=== PATIENT | female | born 1975 | race Caucasian/White ===

== ENCOUNTER → 2017-08-20 | Outpatient (CLI) | payer OTHER ==
[~2017-08-20] MED LIST: ACEASPCAF PO; ACET500; ACET500 PO; AMIT50 PO; AMOCLA875 PO; ANTIOXIDANT FO1 EACH PO; BUSP10 PO; BUSP15 PO; CARAFATE PO; CIPR500 PO; CRUTCH3 USE; CYAN1000I IM; DAILY VALUE1 EACH PO; DIAZ5 PO; DOCU100 PO; ERGO400 PO; FERR325 PO; GUAPHELA PO; HYDACE5 PO; HYDACE5325; IBUP600 PO; IBUP800; IBUP800 PO; IRON150C PO; LAVAP17G; LEVFLO500 PO; LINZESS145 MCG PO; MEDR150I; MELATONIN 10 M1 EACH PO; MELATONIN10 MG PO; METO10 PO; Multiple Vitam1 EAC1; OMEP20ER PO; ONDA4 PO; ONDA4ODT MM; ONDA8 PO; OTC POTASSIUM; OXYACE5T PO; OXYACE7.5T PO; OXYC5 PO; PANT20 PO; PANT40 PO; POTCHL10ER PO; PROBIOTIC1 EAC1; PROM25 PO; QUET100 PO; QUET25 PO; RXHYDGUAS PO; RXONDA4ODT MM; RXOXYACE PO; RXSULTRIDS PO; Roxicodone5 MG PO; STOMACH MEDICATION; STOOL SOFTENER; SUCR1 PO; SULTRIDS PO; SUMA25; TRAM50 PO; VITAMIN D33000 UNIT PO; Vitamin D2000 UNIT PO; Zofran Odt8 MG SL; [UNRECOGNIZED DRUG - OTHER] PR
[2017-08-24 23:10] LABS: CHLAMYDIA TRACHOMATIS, NAA Negative (Negative); NEISSERIA GONORRHOEAE, NAA Negative (Negative)
== END | disposition home or self-care (01) ==
LOC: LAB SHORT 18:39 → LAB EV 18:39
PROVIDERS: Physician Assistant
DX: Z20.9 Contact with and (suspected) exposure to unspecified communicable disease (principal)
CPT/HCPCS: 87491; 87591

== ENCOUNTER → 2017-09-07 | Outpatient (CLI) | payer OTHER ==
[2017-09-07 18:13] LABS: Source, Urine Clean Catch
[2017-09-07 18:44] LABS: Bacteria Many /hpf; Mucus Heavy (0-Heavy); Squamous Epithelial Cells Many /hpf (Few)
== END | disposition home or self-care (01) ==
LOC: LAB SHORT 16:40 → LAB EV 16:40
PROVIDERS: Physician Assistant
DX: R31.9 Hematuria, unspecified (principal)
CPT/HCPCS: 81015

== ENCOUNTER → 2022-03-19 | Outpatient (CLI) | payer OTHER ==
[2022-03-19 16:23] LABS: Percent Saturation 4.5 % (15.0-50.0)
== END | disposition home or self-care (01) ==
LOC: LAB SHORT 09:27
PROVIDERS: Internal Medicine Hematology & Oncology
DX: D50.0 Iron deficiency anemia secondary to blood loss (chronic) (principal)
CPT/HCPCS: 82728; 83540; 83550

== ENCOUNTER → 2022-05-01 | Outpatient (CLI) | payer OTHER ==
[2022-05-01 19:03] LABS: Bilirubin, Total 0.1 mg/dL (0.1-1.0); Calcium, Blood 8.7 mg/dL (8.5-10.1); Creatinine, Blood 0.61 mg/dL (0.40-1.00); Globulin, Blood 3.1 g/dL (2.2-4.0); Percent Saturation 16.5 % (15.0-50.0); Phosphorus, Blood 2.5 mg/dL (2.5-4.9); Potassium, Blood 4.3 mmol/L (3.5-5.5); Total Protein, Blood 6.1 g/dL (6.4-8.2)
== END | disposition home or self-care (01) ==
LOC: LAB SHORT 17:03
PROVIDERS: Internal Medicine Hematology & Oncology
DX: D50.0 Iron deficiency anemia secondary to blood loss (chronic) (principal)
CPT/HCPCS: 80053; 82728; 83540; 83550; 84100

== ENCOUNTER → 2022-06-26 | Outpatient (CLI) | payer OTHER ==
[2022-06-26 15:52] LABS: Percent Saturation 27.8 % (15.0-50.0)
== END | disposition home or self-care (01) ==
LOC: LAB 09:46 → LAB SHORT 09:46
PROVIDERS: Internal Medicine Hematology & Oncology
DX: D50.0 Iron deficiency anemia secondary to blood loss (chronic) (principal)
CPT/HCPCS: 82728; 83540; 83550

== ENCOUNTER 2022-08-12 08:22 | Day surgery (SDC) | payer OTHER ==
[~2022-08-12] VITALS: Ht 172.7 cm; Wt 58.5 kg
[2022-08-12] MEDS ORDERED: ZOLP10 (09:16)
[2022-08-12 11:26] VITALS: BP 116/95
== END 2022-08-12 11:15 | disposition home or self-care (01) ==
LOC: ORSCSDS 08:22
PROVIDERS: Internal Medicine Gastroenterology
PROC: 0D768ZZ Dilation of Stomach, Via Natural or Artificial Opening Endoscopic (ICD-10-PCS; principal; 2022-08-12 10:45)
PROC: 0DJD8ZZ Inspection of Lower Intestinal Tract, Via Natural or Artificial Opening Endoscopic (ICD-10-PCS; principal; 2022-08-12 10:45)
PROC: 0DB68ZX Excision of Stomach, Via Natural or Artificial Opening Endoscopic, Diagnostic (ICD-10-PCS; principal; 2022-08-12 10:45)
PROC: 0DBA8ZX Excision of Jejunum, Via Natural or Artificial Opening Endoscopic, Diagnostic (ICD-10-PCS; principal; 2022-08-12 10:45)
PROC: 0D7A8ZZ Dilation of Jejunum, Via Natural or Artificial Opening Endoscopic (ICD-10-PCS; principal; 2022-08-12 10:45)
DX: D50.9 Iron deficiency anemia, unspecified (principal); K28.9 Gastrojejunal ulcer, unspecified as acute or chronic, without hemorrhage or perforation; K21.9 Gastro-esophageal reflux disease without esophagitis; R68.81 Early satiety; R14.0 Abdominal distension (gaseous); Z98.84 Bariatric surgery status; Z79.899 Other long term (current) drug therapy
CPT/HCPCS: 88305; 88342; C1726; J2704; J7120

== ENCOUNTER 2022-11-27 14:29 | Day surgery (SDC) | payer OTHER ==
[~2022-11-27] VITALS: Ht 172.7 cm; Wt 50.8 kg
[~2022-11-27 14:29] MED LIST changes: +ZOLP10
[2022-11-27] MEDS ORDERED: B-12 COMPL1000 MCG/2 IM (15:12)
[2022-11-27 17:28] VITALS: BP 117/97
--- NOTE | 2022-11-27 17:41 | NUR ---
11/27/221740 MARIIA CORTEZ PT STOMACH WAS FULL OF FOOD/ EGD ABORTED. PT TO RETURN IN A WEEK AFTER LIQUID DIET TO REPEAT EGD.
== END 2022-11-27 17:15 | disposition home or self-care (01) ==
LOC: ORSCSDS 14:29
PROVIDERS: Internal Medicine Gastroenterology
PROC: 0DJ08ZZ Inspection of Upper Intestinal Tract, Via Natural or Artificial Opening Endoscopic (ICD-10-PCS; principal; 2022-11-27 15:45)
DX: K28.7 Chronic gastrojejunal ulcer without hemorrhage or perforation (principal); R10.9 Unspecified abdominal pain; R11.2 Nausea with vomiting, unspecified; Z98.84 Bariatric surgery status; D50.9 Iron deficiency anemia, unspecified; F17.210 Nicotine dependence, cigarettes, uncomplicated; Z79.899 Other long term (current) drug therapy
CPT/HCPCS: J0461; J2001; J2405; J2704; J7120; Q9968

== ENCOUNTER 2023-01-05 13:56 | Day surgery (SDC) | payer OTHER ==
[~2023-01-05] VITALS: Ht 172.7 cm; Wt 45.7 kg
[~2023-01-05 13:56] MED LIST changes: +B-12 COMPL1000 MCG/2 IM
[2023-01-05 16:19] VITALS: BP 105/78
--- NOTE | 2023-01-05 16:46 | NUR ---
01/05/23 1646 [facility] PATIENT HAS WHEEZES TO R POSTERIOR LUNGS. WHEN RN MENTIONED CONSULTING DR DELAROSA FOR A BREATHING TREATMENT PATIENT RESPONDED "NO I DON'T WANT TO." WHEN RN EXPLAINED THAT PATIENT HAD WHEEZES WHEN RN AUSCULTATED LUNGS AND THAT COUGHING DID NOT CLEAR THE WHEEZES AND A BREATHING TREATMENT MIGHT HELP THE PATIENT RESPONDED "NO I DON'T WANT TO, I DON'T HAVE A LUNG PROBLEM." 1615: RN UPDATED DR DELAROSA OF THE ABOVE.
== END 2023-01-05 16:20 | disposition home or self-care (01) ==
LOC: ORSCSDS 13:56
PROVIDERS: Specialist
PROC: 0DB78ZX Excision of Stomach, Pylorus, Via Natural or Artificial Opening Endoscopic, Diagnostic (ICD-10-PCS; principal; 2023-01-05 15:30)
DX: D50.9 Iron deficiency anemia, unspecified (principal); R14.0 Abdominal distension (gaseous); Z98.84 Bariatric surgery status; R11.2 Nausea with vomiting, unspecified; K25.9 Gastric ulcer, unspecified as acute or chronic, without hemorrhage or perforation; F17.210 Nicotine dependence, cigarettes, uncomplicated; Z79.899 Other long term (current) drug therapy
CPT/HCPCS: 88305; 88342; J0461; J2001; J2405; J2704; J7120; Q9968